=== PATIENT | male | born 1965 | race Caucasian/White ===

== ENCOUNTER 2019-11-24 11:28 | Inpatient (IN) | payer MEDICARE ==
[~2019-11-24] VITALS: Ht 182.9 cm; Wt 113.4 kg
[2019-11-24 12:00] LABS: BASOPHILS 0.1 % (0-2); EOSINOPHILS 2.7 % (0-7); HEMOGLOBIN 13.1 g/dL (13.5-17.5); IMMATURE GRANULOCYTES 0.4 % (0-5); LYMPHOCYTES 21.8 % (15-50); MCH 29.7 pg (26.0-34.0); MEAN PLATELET VOLUME 10.1 fL (7.4-10.4); MONOCYTES 12.3 % (2-11); NEUTROPHILS 62.7 % (40-80); PLATELET COUNT 198 10x3/uL (130-400); RBC 4.41 10x6/uL (4.20-6.10); RDW 14.5 % (11.5-14.5); WBC 9.5 10x3/uL (4.8-10.8)
[2019-11-24 12:22] LABS: CALC OSMOLALITY 292 mosm/kg (275-300); CARBON DIOXIDE 32.8 mmol/L (21.0-32.0); CHLORIDE - SERUM 101 mmol/L (98-107); CREATININE - SERUM 1.7 mg/dL (0.6-1.3); GLUCOSE 122 mg/dL (74-106); POTASSIUM - SERUM 4.3 mmol/L (3.5-5.1); SODIUM 142 mmol/L (136-145); UREA NITROGEN 37 mg/dL (7-18); eGFR NON AFRICAN AMERICAN 44 mL/min (90-120)
[2019-11-24 12:31] LABS: ALBUMIN 3.7 g/dL (3.4-5.0); ALKALINE PHOSPHATASE 131 U/L (30-120); ALT (SGPT) 21 U/L (10-68); AMYLASE - SERUM 189 U/L (25-115); BILIRUBIN - TOTAL 0.26 mg/dL (0.2-1.3); LIPASE 727 U/L (73-393); PROTEIN - SERUM 7.5 g/dL (6.4-8.2)
[2019-11-24 12:34] LABS: TROPONIN-I < 0.017 ng/mL (0.000-0.060)
[2019-11-24] MEDS ORDERED: LYRICA150 MG PO ×2 (14:23→14:30)
[2019-11-24] MEDS ORDERED: JARDIANCE25 MG PO (14:23)
[2019-11-24] MEDS ORDERED: KLONOPIN1 MG PO (14:24)
[2019-11-24] MEDS ORDERED: ZANAFLEX4 MG PO (14:28)
[2019-11-24] MEDS ORDERED: CLEOCIN HCL300 MG PO (14:29)
[2019-11-24] MEDS ORDERED: SMZ-TMP DS TABL1 TAB PO (14:30)
[2019-11-24] MEDS ORDERED: GLUCOPHAGE1000 MG PO (14:31)
[2019-11-24] MEDS ORDERED: AMITRIPTYLINE100 MG (14:32)
[2019-11-24] MEDS ORDERED: PREDNISONE10 MG PO (14:33)
[2019-11-24] MEDS ORDERED: PLAVIX75 MG PO (14:37)
[2019-11-24] MEDS ORDERED: HYDROCHLOROTHIA25 MG PO (14:37)
[2019-11-24] MEDS ORDERED: BAYER CHEWABLE81 MG PO (14:38)
[2019-11-24] MEDS ORDERED: KLOR-CON M2020 MEQ PO (14:38)
[2019-11-24] MEDS ORDERED: ISOSORBIDE MONO30 M1 PO (14:39)
[2019-11-24] MEDS ORDERED: METOPROLOL TART25 MG PO (14:40)
[2019-11-24 14:41] VITALS: BP 106/61
[2019-11-24 19:30] VITALS: BP 145/90
--- NOTE | 2019-11-24 20:30 | NUR ---
AWAKE,ALERT,NO COMPALITNS VOCIED. RESP EVEN AND UNALBORED. IV TO LAC INTACT WITHOUT REDNESS OR EDEMA NOTED. DRESSING TO LEFT HEEL INTACT WITH DRIED DRAINAGE NOTED. ABD DISTENDED. CL IN REACH
[2019-11-25] VITALS: BP 134/78
[2019-11-25 04:00] VITALS: BP 137/76
--- NOTE | 2019-11-25 05:28 | NUR ---
I have reviewed this patient and I concur with the Shift Assessment completed by the Licensed Practical Nurse today this shift.
[2019-11-25 05:30] LABS: BASOPHILS 0.2 % (0-2); EOSINOPHILS 3.6 % (0-7); HEMATOCRIT 37.9 % (42.0-54.0); HEMOGLOBIN 11.9 g/dL (13.5-17.5); IMMATURE GRANULOCYTES 0.6 % (0-5); LYMPHOCYTES 23.6 % (15-50); MCH 29.8 pg (26.0-34.0); MCHC 31.4 g/dL (31.0-37.0); MEAN PLATELET VOLUME 10.6 fL (7.4-10.4); MONOCYTES 11.7 % (2-11); NEUTROPHILS 60.3 % (40-80); PLATELET COUNT 175 10x3/uL (130-400); RBC 3.99 10x6/uL (4.20-6.10); RDW 14.7 % (11.5-14.5); WBC 8.3 10x3/uL (4.8-10.8)
[2019-11-25 05:42] LABS: INR 1.09 (0.85-1.17); PROTIME 14.1 SECONDS (11.6-15.0)
[2019-11-25 05:43] LABS: ALBUMIN 3.1 g/dL (3.4-5.0); ANION GAP 8.5 mmol/L (8-16); APTT 39.9 SECONDS (22.8-39.4); BILIRUBIN - TOTAL 0.39 mg/dL (0.2-1.3); CALCIUM 8.3 mg/dL (8.5-10.1); CREATININE - SERUM 1.3 mg/dL (0.6-1.3); LDL-HDL RATIO 2.9 ratio (1.5-3.5); MAGNESIUM - SERUM 2.2 mg/dL (1.8-2.4); PHOSPHOROUS 4.1 mg/dL (2.5-4.9); POTASSIUM - SERUM 4.5 mmol/L (3.5-5.1); PROTEIN - SERUM 7.1 g/dL (6.4-8.2)
--- NOTE | 2019-11-25 08:30 | NUR ---
PT LYING IN BED ON PHONE, PT WAS GIVEN BREAKFAST TRAY THIS MORNING AFTER DIETARY INSTRUCTED PT NPO. CALLED AND INFORMED IR NURSE. PT STATED PAIN IS AT A 9 GOES TO 10 WITH MOVEMENT. ADMINISTER PRN PAIN MEDICATION WITH SCHEDULED MORNING MEDS. NO OTHER NEEDS AT THIS TIME. CONTINUE WITH PLAN OF CARE
[2019-11-25 08:50] VITALS: BP 126/83
[2019-11-25 10:31] LABS: BILIRUBIN NEGATIVE (NEGATIVE); GLUCOSE 250 mg/dL (NEGATIVE); KETONE NEGATIVE (NEGATIVE); NITRITE NEGATIVE (NEGATIVE); SPECIFIC GRAVITY 1.015 (1.005-1.020); UROBILINOGEN NORMAL (NORMAL)
--- NOTE | 2019-11-25 11:01 | NUR ---
PER IR NURSE Ramiro LEAVITT SINCE PT ATE BREAKFAST, LIVER BIOPSY IS RESCHEDULED FOR THE MORNING. PT STATES PAIN IS STILL AT A 9 AFTER PAIN MEDICATION ADMINISTERED. ADVISED WE WILL NEED TO SPEAK TO DR ABOUT ADDITIONAL BREAKTHROUGH MEDICATION. NO OTHER NEEDS VOICED, CONTINUE WITH PLAN OF CARE
--- NOTE | 2019-11-25 11:27 | NUR ---
PATIENT IS WITHOUT NEEDS.CALL LIGHT IN REACH
[2019-11-25 13:23] VITALS: BP 120/78
[2019-11-25 14:04] VITALS: BMI 33.9
[2019-11-25 16:19] VITALS: BP 93/69
[2019-11-25 19:30] VITALS: BP 106/66
--- NOTE | 2019-11-25 22:49 | NUR ---
PT LYING IN BED C/O PAIN AT AN 8, ADMINISTERED PRN PAIN MEDICATION. REMINDED PT HE IS NPO AFTER MIDNIGHT FOR BIOPSY. NO OTHER NEEDS VOICED, CONTINUE WITH PLAN OF CARE
[2019-11-26] VITALS (11 sets, daily range): BP systolic 102–155; BP diastolic 63–86
--- NOTE | 2019-11-26 01:09 | NUR ---
I have reviewed this patient and I concur with the Shift Assessment completed by the Licensed Practical Nurse today this shift.
[2019-11-26 04:28] LABS: BASOPHILS 0.1 % (0-2); EOSINOPHILS 1.4 % (0-7); HEMATOCRIT 38.9 % (42.0-54.0); HEMOGLOBIN 12.2 g/dL (13.5-17.5); IMMATURE GRANULOCYTES 0.4 % (0-5); LYMPHOCYTES 8.3 % (15-50); MCH 29.8 pg (26.0-34.0); MCHC 31.4 g/dL (31.0-37.0); MCV 94.9 fL (80.0-100.0); MEAN PLATELET VOLUME 10.6 fL (7.4-10.4); NEUTROPHILS 79.8 % (40-80); PLATELET COUNT 163 10x3/uL (130-400); RDW 14.4 % (11.5-14.5); WBC 9.4 10x3/uL (4.8-10.8)
[2019-11-26 04:36] LABS: INR 1.09 (0.85-1.17); PROTIME 14.1 SECONDS (11.6-15.0)
[2019-11-26 04:37] LABS: APTT 36.6 SECONDS (22.8-39.4)
[2019-11-26 04:47] LABS: ALBUMIN 3.2 g/dL (3.4-5.0); ALKALINE PHOSPHATASE 133 U/L (30-120); ALT (SGPT) 29 U/L (10-68); BILIRUBIN - TOTAL 0.36 mg/dL (0.2-1.3); CALCIUM 8.4 mg/dL (8.5-10.1); CARBON DIOXIDE 32.1 mmol/L (21.0-32.0); CHLORIDE - SERUM 105 mmol/L (98-107); GLUCOSE 93 mg/dL (74-106); PHOSPHOROUS 3.8 mg/dL (2.5-4.9); SODIUM 144 mmol/L (136-145); eGFR NON AFRICAN AMERICAN 82 mL/min (90-120)
[2019-11-26 04:49] LABS: CALC OSMOLALITY 289 mosm/kg (275-300); LIPASE 205 U/L (73-393); UREA NITROGEN 21 mg/dL (7-18)
[2019-11-26 04:58] LABS: MAGNESIUM - SERUM 2.1 mg/dL (1.8-2.4)
--- NOTE | 2019-11-26 08:00 | NUR ---
BACK FROM MRI, DENIES ANY NEEDS. HAS A DRESSING TO THE RIGHT HEEL, CLEAN, DRY, INTACT.
[2019-11-26 08:11] LABS: ALPHA FETOPROTEIN -(TUMOR MRK) 1.6 ng/mL (0.0-8.3); CEA 11.4 ng/mL (0.0-4.7)
[2019-11-26 09:10] LABS: HEPATITIS C ANTIBODY <0.1 S/CO RAT (0.0-0.9)
--- NOTE | 2019-11-26 09:33 | NUR ---
GONE FOR HIS BX.
--- NOTE | 2019-11-26 20:00 | NUR ---
ALERT RESTING IN BED, DENIES PAIN OR NEEDS AT THIS TIME, SEE SHIFT ASSESSMENT, CALL LIGHT IN REACH
--- NOTE | 2019-11-26 20:00 | NUR ---
ALERT RESTING IN BED REQUESTIGN PAIN MEDICATION, SEE SHIFT ASSESSMENT, CALL LIGHT IN REACH
[2019-11-27] VITALS: BP 132/82
[2019-11-27 04:00] VITALS: BP 144/85
[2019-11-27 07:08] LABS: BASOPHILS 0.3 % (0-2); EOSINOPHILS 2.7 % (0-7); HEMATOCRIT 37.6 % (42.0-54.0); HEMOGLOBIN 11.5 g/dL (13.5-17.5); IMMATURE GRANULOCYTES 0.4 % (0-5); LYMPHOCYTES 19.8 % (15-50); MCH 29.3 pg (26.0-34.0); MCHC 30.6 g/dL (31.0-37.0); MCV 95.9 fL (80.0-100.0); MEAN PLATELET VOLUME 11.1 fL (7.4-10.4); MONOCYTES 12.4 % (2-11); NEUTROPHILS 64.4 % (40-80); PLATELET COUNT 157 10x3/uL (130-400); RBC 3.92 10x6/uL (4.20-6.10); RDW 14.5 % (11.5-14.5); WBC 7.4 10x3/uL (4.8-10.8)
[2019-11-27 07:36] LABS: ALBUMIN 3.1 g/dL (3.4-5.0); ALKALINE PHOSPHATASE 149 U/L (30-120); ALT (SGPT) 30 U/L (10-68); BILIRUBIN - TOTAL 0.47 mg/dL (0.2-1.3); CALC OSMOLALITY 285 mosm/kg (275-300); CALCIUM 8.8 mg/dL (8.5-10.1); CARBON DIOXIDE 32.5 mmol/L (21.0-32.0); CHLORIDE - SERUM 106 mmol/L (98-107); GLUCOSE 96 mg/dL (74-106); MAGNESIUM - SERUM 1.9 mg/dL (1.8-2.4); POTASSIUM - SERUM 3.9 mmol/L (3.5-5.1); PROTEIN - SERUM 7.3 g/dL (6.4-8.2); SODIUM 143 mmol/L (136-145); eGFR NON AFRICAN AMERICAN 82 mL/min (90-120)
[2019-11-27 07:38] LABS: LIPASE 120 U/L (73-393); PHOSPHOROUS 2.5 mg/dL (2.5-4.9); UREA NITROGEN 15 mg/dL (7-18)
--- NOTE | 2019-11-27 08:00 | NUR ---
ALERT AND ORIENTED. LUNGS CLEAR BILATERALLY. HEART SOUNDS S1 AND S2 HEARD IN ALL MALLORY. BOWEL SOUNDS ACTIVE X 4. DRSG TO ABD C/D/I. DRSG TO RIGHT HEEL C/D/I. IV TO LEFT AC PATENT WITHOUT REDNESS. BED LOW. CALL RIGGINS AND PERSONAL ITEMS IN REACH. REQUESTED AND GIVEN CHICKEN BROTH. DENIES FURTHER NEEDS. WILL CONTINUE TO MONITOR.
[2019-11-27 08:04] VITALS: BP 154/89
--- NOTE | 2019-11-27 12:40 | NUR ---
DISCHARGE EDUCATION PROVIDED BOTH WRITTEN AND VERBAL. VERBALIZED UNDERSTANDING. DENIES QUESTIONS. DISK OF IMAGES GIVEN TO PATIENT PER REQUEST FOR DISCHARGE. IV REMOVED FROM LEFT AC WITH TIP INTACT. DENIES FURTHER NEEDS. WAITING RIDE HOME.
--- NOTE | 2019-11-27 12:41 | MORECARE ---
CASE MANAGEMENT DISCHARGE SUMMARY PATIENT: GELY GOEL UNIT: [id number] ADM DATE: 11/24/19 AGE: 54 : 61 SEX: M ROOM/BED: D.2228 AUTHOR: JOSUE,DOC PHYSICIAN: REFERRING PHYSICIAN: ORTIZ QUINONES MD DATE OF SERVICE: 11/27/19 Discharge Plan Patient Name: GELY GOEL Facility: [facility]:[place] : 1965 Planned Disposition: Home with Home Health Anticipated Discharge Date: 11/27/19 Discharge Date: Expected LOS: 3 Initial Reviewer: [email or web address] Initial Review Date: 11/24/2019 Generated: 11/27/19 1:41 pm Comments DCP- Discharge Planning Updated by [email or web address]: Adina Guzman on 11/27/19 11:[address] Patient Name: GELY GOEL Admission Status: ER Accout number: [id number] Admission Date: 11-24-2019 : 1965 Admission Diagnosis: Attending: ORTIZ QUINONES Current LOS: 3 Anticipated DC Date: 11-27-2019 Planned Disposition: Home with Home Health Primary Insurance: [facility] MEDICARE SOLUTIONS Discharge Planning Comments: CM met with patient to complete initial dc planning assessment. CM educated patient on the CM role and verbal consent given by patient to complete assessment. Patient lives at home with his spouse and 27 year old son. At discharge patient plans to return and feels this is a safe discharge. CM discussed availability of home health, rehab services, and medical equipment. He is current with [facility] in [place] and would like it resumed on discharge. I called [facility] in [place] and clinical faxed. CM will continue to follow and will assist as needed with dc plans/needs. Double End Production Grinder: Adina Guzman DCPIA - Discharge Planning Initial Assessment Updated by [email or web address]: Adina Guzman on 11/27/19 12:37 pm * Is the patient Alert and Oriented? Yes * How many steps to enter\exit or inside your home? 4/0 * PCP Dr. Edu Chang in [place] * Pharmacy Power * Preadmission Environment Home with Family * ADLs Partial Dependent * Partial ADLs (Assistance needed) Ambulation Medication Management * Equipment Cane Rolling Walker Wheelchair * List name and contact numbers for known caregivers / representatives who currently or will assist patient after discharge: Lisa Goel - spouse - [phone] * Verbal permission to speak to the caregivers and representatives has been obtained from the patient. Yes * Community resources currently utilized Home Health * Please name any agencies selected above. [facility] in [place] * Additional services required to return to the preadmission environment? No * Can the patient safely return to the preadmission environment? Yes * Has this patient been hospitalized within the prior 30 days at any hospital? No External Providers External Provider: [facility] Next Contact Date: Service Request Date: Service Type: Resolution: Reviewer: Comments: Coverage Notice Reviewer: [id number] Guzman Notice Issued Date-Time: 11/27/2019 12:32 Notice Type: IM Discharge Notice Notice Delivered To: Patient Relationship to Patient: Self Diversified Crops Ii Farmworker Name: Delivery Method: HAND - Hand Delivered Rima Days: Prior Verbal Notification: Recipient Understood Notice: Yes Recipient Signature: Yes Med Rec Note Co-signed by Attending: Coverage Notice Comment: IMM explained, signed, given, copy placed in MR Reviewer: [id number] Guzman Notice Issued Date-Time: 11/27/2019 12:32 Notice Type: Patient Choice Letter Notice Delivered To: Patient Relationship to Patient: Self Diversified Crops Ii Farmworker Name: Delivery Method: HAND - Hand Delivered Rima Days: Prior Verbal Notification: Recipient Understood Notice: Yes Recipient Signature: Yes Med Rec Note Co-signed by Attending: Coverage Notice Comment: JOHN for [facility] in [place] Patient Name: GELY GOEL Page [phone] at 1241 All edits/amendments must be made on the electronic document DICTATION DATE: 11/27/19 1241 TEST OPERATOR: ALBERTO 11/27/19 1241 RPT#: [id number] DC DATE: STATUS: ADM IN [facility] [address] [place] [address] END OF REPORT
[2019-11-27 12:54] VITALS: Ht 182.9 cm; Wt 113.4 kg
[2019-11-27 13:16] VITALS: BP 141/88
--- NOTE | 2019-11-27 15:30 | NUR ---
PATIENT DISCHARGED HOME WITH WITH ALL BELONGINGS.
--- NOTE | 2019-12-02 09:19 | MORECARE ---
CASE MANAGEMENT DISCHARGE SUMMARY PATIENT: GELY GOEL UNIT: [id number] ADM DATE: 11/24/19 AGE: 54 : 61 SEX: M ROOM/BED: D.2228 AUTHOR: JOSUE,DOC PHYSICIAN: REFERRING PHYSICIAN: ORTIZ QUINONES MD DATE OF SERVICE: 12/02/19 Discharge Plan Patient Name: GELY GOEL Facility: [facility]:[place] : 1965 Planned Disposition: Home with Home Health Anticipated Discharge Date: 11/27/19 Discharge Date: 11/27/2019 Expected LOS: 3 Initial Reviewer: [email or web address] Initial Review Date: 11/24/2019 Generated: 12/02/19 10:18 am Comments DCP- Discharge Planning Updated by [email or web address]: Adina Guzman on 11/27/19 11:[address] Patient Name: GELY GOEL Admission Status: ER Accout number: [id number] Admission Date: 11-24-2019 : 1965 Admission Diagnosis: Attending: ORTIZ QUINONES Current LOS: 3 Anticipated DC Date: 11-27-2019 Planned Disposition: Home with Home Health Primary Insurance: [facility] MEDICARE SOLUTIONS Discharge Planning Comments: CM met with patient to complete initial dc planning assessment. CM educated patient on the CM role and verbal consent given by patient to complete assessment. Patient lives at home with his spouse and 27 year old son. At discharge patient plans to return and feels this is a safe discharge. CM discussed availability of home health, rehab services, and medical equipment. He is current with [facility] in [place] and would like it resumed on discharge. I called [facility] in [place] and clinical faxed. CM will continue to follow and will assist as needed with dc plans/needs. Launderette Attendant: Adina Guzman DCPIA - Discharge Planning Initial Assessment Updated by [email or web address]: Adina Guzman on 11/27/19 12:37 pm * Is the patient Alert and Oriented? Yes * How many steps to enter\exit or inside your home? 4/0 * PCP Dr. Edu Chang in [place] * Pharmacy Power * Preadmission Environment Home with Family * ADLs Partial Dependent * Partial ADLs (Assistance needed) Ambulation Medication Management * Equipment Cane Rolling Walker Wheelchair * List name and contact numbers for known caregivers / representatives who currently or will assist patient after discharge: Lisa Goel - spouse - [phone] * Verbal permission to speak to the caregivers and representatives has been obtained from the patient. Yes * Community resources currently utilized Home Health * Please name any agencies selected above. [facility] in [place] * Additional services required to return to the preadmission environment? No * Can the patient safely return to the preadmission environment? Yes * Has this patient been hospitalized within the prior 30 days at any hospital? No Coverage Notice Reviewer: [email or web address] Guzman Notice Issued Date-Time: 11/27/2019 12:32 Notice Type: IM Discharge Notice Notice Delivered To: Patient Relationship to Patient: Self Pot Annealer Name: Delivery Method: HAND - Hand Delivered Rima Days: Prior Verbal Notification: Recipient Understood Notice: Yes Recipient Signature: Yes Med Rec Note Co-signed by Attending: Coverage Notice Comment: IMM explained, signed, given, copy placed in MR Reviewer: [id number] Guzman Notice Issued Date-Time: 11/27/2019 12:32 Notice Type: Patient Choice Letter Notice Delivered To: Patient Relationship to Patient: Self Pot Annealer Name: Delivery Method: HAND - Hand Delivered Rima Days: Prior Verbal Notification: Recipient Understood Notice: Yes Recipient Signature: Yes Med Rec Note Co-signed by Attending: Coverage Notice Comment: JOHN for [facility] in [place] Last DP export: 11/27/19 11:41 a Patient Name: GELY GOEL Page [phone] at 0919 All edits/amendments must be made on the electronic document DICTATION DATE: 12/02/19917 CLINICAL PROGRAM COORDINATOR: ALBERTO 12/02/19917 RPT#: [id number] DC DATE:11/27/19 STATUS: DIS IN [facility] [address] [place] [address] END OF REPORT
== END 2019-11-27 15:30 | disposition home health service (06) | DRG 435 ==
LOC: D.ER 11:28 → D.MS 13:14
PROVIDERS: Family Medicine; Internal Medicine Hematology & Oncology; Radiology Vascular & Interventional Radiology; Specialist; ADMIT Internal Medicine Nephrology; ATTEND Internal Medicine Nephrology
PROC: 3E10X8Z Irrigation of Skin and Mucous Membranes using Irrigating Substance (ICD-10-PCS; 2019-11-25)
PROC: 0FB23ZX Excision of Left Lobe Liver, Percutaneous Approach, Diagnostic (ICD-10-PCS; principal; 2019-11-26 10:05)
DX: C22.7 Other specified carcinomas of liver (principal); K85.90 Acute pancreatitis without necrosis or infection, unspecified; N17.9 Acute kidney failure, unspecified; L97.919 Non-pressure chronic ulcer of unspecified part of right lower leg with unspecified severity; D64.9 Anemia, unspecified; E11.40 Type 2 diabetes mellitus with diabetic neuropathy, unspecified; I10 Essential (primary) hypertension; K21.9 Gastro-esophageal reflux disease without esophagitis; I25.10 Atherosclerotic heart disease of native coronary artery without angina pectoris; E11.622 Type 2 diabetes mellitus with other skin ulcer

== ENCOUNTER → 2019-12-30 08:48 | Outpatient (CLI) | payer MEDICARE ==
[~2019-12-30 08:48] MED LIST: AMITRIPTYLINE100 MG; BAYER CHEWABLE81 MG PO; CLEOCIN HCL300 MG PO; GLUCOPHAGE1000 MG PO; HYDROCHLOROTHIA25 MG PO; ISOSORBIDE MONO30 M1 PO; JARDIANCE25 MG PO; KLONOPIN1 MG PO; KLOR-CON M2020 MEQ PO; LYRICA150 MG PO; METOPROLOL TART25 MG PO; PLAVIX75 MG PO; PREDNISONE10 MG PO; SMZ-TMP DS TABL1 TAB PO; ZANAFLEX4 MG PO
== END | disposition home or self-care (01) ==
LOC: D.NM 08:15 → D.CT 09:30
PROVIDERS: ATTEND Internal Medicine Hematology & Oncology
DX: Z85.05 Personal history of malignant neoplasm of liver (principal)